=== PATIENT | female | born 1940 | race Caucasian/White ===

== ENCOUNTER 2017-04-10 10:25 | Inpatient (IN) | payer OTHER, MEDICAID ==
[~2017-04-10] VITALS: Ht 160 cm; Wt 65.8 kg
[2017-04-10] MEDS ORDERED: SODIUM CHLORIDE 0.9% 1,000 ML IV SCH (10:44)
[2017-04-10] MEDS ORDERED: EPINEPHRINE 1:1000 1 MG/ML AMP IM ONE (10:45)
[2017-04-10] MEDS ORDERED: METHYLPREDNISOLONE SOD SUCC 125 MG/2 ML VIAL IV ONE (10:45)
[2017-04-10] MEDS ORDERED: FAMOTIDINE 20MG/2ML VIAL IV ONE (10:45)
[2017-04-10] MEDS ORDERED: DIPHENHYDRAMINE 50MG/ML VIAL IV ONE (10:45)
[2017-04-10 11:20] LABS: HEMOGLOBIN. 8.1 g/dL (12.0-16.0); MEAN CORPUSCULAR HEMOGLOBIN 37.5 pg (28.0-32.0); MEAN CORPUSCULAR VOLUME 110.6 fL (81.0-99.0); MEAN PLATELET VOLUME 9.1 fl (7.4-10.4); PLATELET 111 x1000/uL (130-400); RED BLOOD CELL COUNT 2.17 mill/uL (4.2-5.4); RED CELL DISTRIBUTION WIDTH 17.5 % (11.6-14.6)
[2017-04-10 11:27] LABS: INR 1.1; PROTHROMBIN TIME 11.4 sec (9.4-11.6)
[2017-04-10 11:39] LABS: CARBON DIOXIDE 25 mEq/L (21-32); CHLORIDE 102 mEq/L (98-107); TROPONIN I < 0.02 ng/mL (0.00-0.04)
[2017-04-10 11:49] LABS: AMYLASE 58 IU/L (25-115)
[2017-04-10 13:48] LABS: PLATELET ESTIMATE SLIGHTLY DECREASED
[2017-04-10] MEDS ORDERED: HYDROCODONE/ACETAMINOPHEN 5/325MG TABLET PO PRN (17:30)
[2017-04-10] MEDS ORDERED: LORAZEPAM 2MG/ML CPJ IV PRN (17:30)
[2017-04-10] MEDS ORDERED: MAGNESIUM/ALUMINUM HYDROXIDE/SIMETHICONE 30ML UDC PO PRN (17:30)
[2017-04-10] MEDS ORDERED: GUAIFENESIN 200MG/10ML SUGAR FREE UDC PO PRN (17:30)
[2017-04-10] MEDS ORDERED: DIPHENHYDRAMINE 50MG/ML VIAL IV PRN (17:30)
[2017-04-10] MEDS ORDERED: NA PHOS,M-B/NA PHOS,DI-BA ENEMA 118ML PR PRN (17:30)
[2017-04-10] MEDS ORDERED: IPRATROPIUM/ALBUTEROL 0.5-3(2.5)MG/3ML NEB INH PRN (17:30)
[2017-04-10] MEDS ORDERED: CLONIDINE 0.1MG TABLET PO PRN (17:30)
[2017-04-10] MEDS ORDERED: MORPHINE SULFATE 2 MG/ML CPJ (NOT FOR IM USE) IV PRN (17:30)
[2017-04-10] MEDS ORDERED: ACETAMINOPHEN 325MG TABLET PO PRN (17:30)
[2017-04-10] MEDS ORDERED: ONDANSETRON HCL 4MG/2ML VIAL IV PRN (17:30)
[2017-04-10] MEDS ORDERED: DOCUSATE SODIUM 100MG CAPSULE PO PRN (17:30)
[2017-04-10] MEDS ORDERED: LORAZEPAM 0.5MG TABLET PO PRN (21:00)
[2017-04-10] MEDS: METHYLPREDNISOLONE SOD SUCC 125 MG/2 ML VIAL IV SCH ×2 (21:47→23:23)
[2017-04-10 22:00] VITALS: BP 136/68
[2017-04-10 22:12] VITALS: BP 136/68
[2017-04-10] MEDS ORDERED: ASPI-1159 PO (22:16)
[2017-04-10] MEDS ORDERED: FISH1CAP34 PO (22:17)
[2017-04-11] VITALS (12 sets, daily range): BP systolic 119–157; BP diastolic 55–79
[2017-04-11] MEDS: METHYLPREDNISOLONE SOD SUCC 125 MG/2 ML VIAL IV SCH ×4 (06:01→23:49)
[2017-04-11 07:26] LABS: HEMATOCRIT. 21.2 % (36.0-48.0); HEMOGLOBIN. 7.3 g/dL (12.0-16.0); MEAN CORPUSCULAR HEMOGLOBIN 38.1 pg (28.0-32.0); MEAN CORPUSCULAR VOLUME 110.7 fL (81.0-99.0); MEAN PLATELET VOLUME 9.6 fl (7.4-10.4); PLATELET 104 x1000/uL (130-400); RED BLOOD CELL COUNT 1.91 mill/uL (4.2-5.4); RED CELL DISTRIBUTION WIDTH 17.7 % (11.6-14.6)
[2017-04-11 07:43] LABS: CHLORIDE 107 mEq/L (98-107)
[2017-04-11 08:13] LABS: CARBON DIOXIDE 21 mEq/L (21-32); HDL CHOLESTEROL 35 mg/dL (40-59); LDL CHOLESTEROL 148 mg/dL (5-100); T4 FREE 1.25 ng/dL (0.76-1.46); TROPONIN I < 0.02 ng/mL (0.00-0.04)
[2017-04-11 17:06] LABS: CREATINE KINASE 92 IU/L (26-192); HDL CHOLESTEROL 34 mg/dL (40-59); LDL CHOLESTEROL 160 mg/dL (5-100); TROPONIN I < 0.02 ng/mL (0.00-0.04)
[2017-04-11 17:07] LABS: CREATINE KINASE MB FRACTION 1.1 ng/mL (0.5-3.6)
[2017-04-11 20:21] LABS: HEMATOCRIT. 21.3 % (36.0-48.0); HEMOGLOBIN. 7.4 g/dL (12.0-16.0); MEAN CORPUSCULAR HEMOGLOBIN 38.1 pg (28.0-32.0); MEAN CORPUSCULAR VOLUME 110.2 fL (81.0-99.0); PLATELET 98 x1000/uL (130-400); RED BLOOD CELL COUNT 1.94 mill/uL (4.2-5.4); RED CELL DISTRIBUTION WIDTH 17.7 % (11.6-14.6)
[2017-04-11 20:30] LABS: PLATELET ESTIMATE DECREASED
[2017-04-11 20:50] LABS: TOTAL IRON BINDING CAPACITY 266 ug/dL (250-450)
[2017-04-11 20:53] LABS: NUCLEATED RED BLOOD CELLS 1 /100 WBC; PLATELET ESTIMATE DECREASED
[2017-04-11 23:21] LABS: CREATINE KINASE 93 IU/L (26-192); CREATINE KINASE MB FRACTION 1.6 ng/mL (0.5-3.6); TROPONIN I < 0.02 ng/mL (0.00-0.04)
[2017-04-12] VITALS (17 sets, daily range): BP systolic 106–161; BP diastolic 46–89
[2017-04-12] MEDS: METHYLPREDNISOLONE SOD SUCC 125 MG/2 ML VIAL IV SCH ×4 (05:49→23:05)
[2017-04-12 06:55] LABS: CREATINE KINASE 100 IU/L (26-192); CREATINE KINASE MB FRACTION 1.7 ng/mL (0.5-3.6); TROPONIN I < 0.02 ng/mL (0.00-0.04)
[2017-04-12 07:09] LABS: HEMATOCRIT 23.6 % (36.0-48.0); HEMOGLOBIN 8.2 g/dL (12.0-16.0)
[2017-04-12 22:32] LABS: VITAMIN B12 SERUM 572 pg/mL (211-911)
[2017-04-12 22:59] LABS: HEPATITIS B SURFACE ANTIGEN NEGATIVE
[2017-04-12 23:28] LABS: HEPATITIS B CORE AB IGM NEGATIVE
[2017-04-12 23:29] LABS: HEPATITIS A AB IGM NEGATIVE (NEGATIVE)
[2017-04-13] VITALS (8 sets, daily range): BP systolic 129–147; BP diastolic 59–78
[2017-04-13] MEDS: METHYLPREDNISOLONE SOD SUCC 125 MG/2 ML VIAL IV SCH (06:31)
[2017-04-13 07:00] LABS: HEMATOCRIT 25.3 % (36.0-48.0); HEMOGLOBIN 8.8 g/dL (12.0-16.0); MEAN CORPUSCULAR VOLUME 106.3 fL (81.0-99.0); PLATELET 89 x1000/uL (130-400); RED BLOOD CELL COUNT 2.38 mill/uL (4.2-5.4); RED CELL DISTRIBUTION WIDTH 19.7 % (11.6-14.6)
[2017-04-13 07:21] LABS: CHLORIDE 105 mEq/L (98-107)
[2017-04-13 07:55] LABS: CARBON DIOXIDE 19 mEq/L (21-32)
[2017-04-16 13:11] LABS: C1 ESTERASE INHIBITOR 25 mg/dL (21-39)
[2017-04-17 13:12] LABS: C1 ESTERASE INHIBITOR FUNCTNL 81 (.)
== END 2017-04-13 12:00 | disposition home or self-care (01) | DRG 642 ==
LOC: ER 10:25 → 3WST 15:07 → EDBEDREQ 15:10 → EDBEDREQTM 15:10 → ENRESERV 20:04
PROVIDERS: ADMIT Internal Medicine; ATTEND Internal Medicine
PROC: 30233N1 Transfusion of Nonautologous Red Blood Cells into Peripheral Vein, Percutaneous Approach (ICD-10-PCS; principal; 2017-04-12)
DX: D84.1 Defects in the complement system (principal); D69.6 Thrombocytopenia, unspecified; D63.8 Anemia in other chronic diseases classified elsewhere; I10 Essential (primary) hypertension; X58.XXXA Exposure to other specified factors, initial encounter; Z79.899 Other long term (current) drug therapy; Z88.8 Allergy status to other drugs, medicaments and biological substances; Z79.82 Long term (current) use of aspirin
CPT/HCPCS: 36415; 70486; 71010; 76700; 80048; 80053; 80061; 82150; 82270; 82550; 82553; 82607; 83036; 83540; 83550; 83880; 84439; 84443; 84484; 85014; 85018; 85025; 85027; 85044; 85379; 85384; 85610; 86161; 86705; 86709; 86803; 86850; 86900; 86920; 87186; 87340; 87804; 92610; 93005; 93306; 96361; 96374; 96375; 99285; J0171; J1200; J2270; J2930; J3490; J7030; J7040; P9016

== ENCOUNTER 2017-06-01 12:35 | Emergency (ER) | payer OTHER, MEDICAID ==
[~2017-06-01] VITALS: Ht 157.5 cm; Wt 68.0 kg
[~2017-06-01 12:35] MED LIST: FISH1CAP34 PO
[2017-06-01 14:54] LABS: MEAN CORPUSCULAR HEMOGLOBIN 34.1 pg (28.0-32.0); MEAN CORPUSCULAR VOLUME 99.3 fL (81.0-99.0); MEAN PLATELET VOLUME 8.8 fl (7.4-10.4)
[2017-06-01 14:57] LABS: HEMATOCRIT. 16.9 % (36.0-48.0); HEMOGLOBIN. 5.8 g/dL (12.0-16.0)
[2017-06-01 14:58] LABS: PLATELET 49 x1000/uL (130-400)
[2017-06-01 15:01] LABS: INR 1.1; PROTHROMBIN TIME 11.7 sec (9.4-11.6)
[2017-06-01 15:10] LABS: CHLORIDE 106 mEq/L (98-107)
[2017-06-01 16:15] LABS: ATYPICAL LYMPHOCYTES 1; NUCLEATED RED BLOOD CELLS 2 /100 WBC
[2017-06-01 16:16] LABS: PLATELET ESTIMATE MARKEDLY DECREASED
[2017-06-01 19:25] VITALS: BP 125/84
== END 2017-06-01 21:50 | disposition home or self-care (01) ==
LOC: ER 13:13
DX: C95.00 Acute leukemia of unspecified cell type not having achieved remission (principal); D63.0 Anemia in neoplastic disease; D46.9 Myelodysplastic syndrome, unspecified; I10 Essential (primary) hypertension; K21.9 Gastro-esophageal reflux disease without esophagitis; E78.00 Pure hypercholesterolemia, unspecified; Z92.21 Personal history of antineoplastic chemotherapy
CPT/HCPCS: 36415; 36430; 80053; 85025; 85610; 86850; 86900; 86901; 86920; 93005; 99285; J7030; P9016